=== PATIENT | female | born 1970 | race Caucasian/White ===

== ENCOUNTER 2018-02-10 13:11 | Emergency (ER) | payer OTHER ==
[2018-02-10 13:44] LABS: BASOPHILS 0.2 % (0-2); EOSINOPHILS 1.7 % (0-7); HEMATOCRIT 44.7 % (36.0-48.0); HEMOGLOBIN 15.6 g/dL (12-16); IMMATURE GRANULOCYTES 0.1 % (0-5); LYMPHOCYTES 31.1 % (15-50); MCH 32.5 pg (26.0-34.0); MCHC 34.9 g/dL (31.0-37.0); MCV 93.1 fL (80.0-100.0); MEAN PLATELET VOLUME 10.1 fL (7.4-10.4); MONOCYTES 6.7 % (2-11); NEUTROPHILS 60.2 % (40-80); PLATELET COUNT 252 10x3/uL (130-400); RDW 12.4 % (11.5-14.5); WBC 8.8 10x3/uL (4.8-10.8)
[2018-02-10 13:48] LABS: APTT 26.2 SECONDS (22.8-39.4); PROTIME 12.8 SECONDS (11.6-15.0)
[2018-02-10 13:57] LABS: ALBUMIN 4.2 g/dL (3.4-5.0); ANION GAP 16.3 mmol/L (8-16); BILIRUBIN - TOTAL 1.2 mg/dL (0.2-1.3); CALCIUM 9.3 mg/dL (8.5-10.1); CREATININE - SERUM 1.2 mg/dL (0.6-1.3); POTASSIUM - SERUM 3.3 mmol/L (3.5-5.1); PROTEIN - SERUM 8.3 g/dL (6.4-8.2)
== END 2018-02-10 17:49 | disposition home or self-care (01) ==
LOC: D.ER 13:11
PROVIDERS: Emergency Medicine
DX: G44.89 Other headache syndrome (principal)

== ENCOUNTER → 2020-03-28 16:14 | Outpatient (CLI) | payer OTHER | END | disposition home or self-care (01) | LOC: D.CT 16:00 | PROVIDERS: ATTEND Family Medicine | DX: R51 Headache (principal) ==